=== PATIENT | male | born 1990 | race Caucasian/White ===

== ENCOUNTER 2016-09-22 11:22 | Observation (INO) | payer BC ==
[2016-09-22] MEDS: Dextrose 5%-0.45% NaCl 1,000 ML IV SCH ×2 (12:15→21:46)
[2016-09-22] MEDS ORDERED: Acetaminophen 325 MG Tab PO PRN (13:20)
[2016-09-22] MEDS ORDERED: Albuterol/Ipratropium 3.0-0.5 MG/3 ML Neb Soln NEB PRN (13:23)
[2016-09-22] MEDS ORDERED: Topiramate 25 MG Tab PO PRN (13:27)
[2016-09-22] MEDS ORDERED: Albuterol 8 GM Inhaler INH PRN (13:27)
[2016-09-22] MEDS ORDERED: Promethazine 25 MG/ML SDV IM PRN (13:27)
[2016-09-22] MEDS ORDERED: Cyclobenzaprine 10 MG Tab PO PRN (13:27)
[2016-09-22] MEDS: Levofloxacin/Dextrose 5%-Water 100 ML IV SCH (13:51)
[2016-09-23] MEDS: Dextrose 5%-0.45% NaCl 1,000 ML IV SCH (05:23)
[2016-09-23] MEDS ORDERED: Omeprazole 20 MG Cap.CR PO SCH (07:00)
[2016-09-23 07:50] LABS: CHLORIDE,CL 102 mmol/L (98-115); SODIUM,NA 138 mmol/L (136-145)
[2016-09-23] MEDS ORDERED: Cholecalciferol (Vitamin D3) 1,000 Unit Tab PO SCH (09:00)
[2016-09-23] MEDS ORDERED: Multivitamins with Minerals/Iron/Folic Acid/Lycopene Tab PO SCH (09:00)
[2016-09-23] MEDS ORDERED: Sodium Chloride 0.9% 1,000 ML IV SCH (11:15)
[2016-09-23] MEDS: Levofloxacin/Dextrose 5%-Water 100 ML IV SCH (14:33)
[2016-09-23 15:36] VITALS: BP 137/70
--- NOTE | 2016-09-26 10:32 | DISCH ---
The patient was admitted into observation last night on , discharged from observation today, 09/23/2016. FINAL DIAGNOSES: 1. Leukocytosis fever, unknown etiology, likely bacterial infection, occult infection, unknown terminology; however, clinically he is improving. 2. Mild dehydration, becoming more euvolemic. HISTORY: This 26-year-old, obese male was seen by Juan Antonio Ching yesterday at [facility]. He had been quite ill. The patient stated that he started feeling ill and at one time, he felt he was going to . He had a high fever of 104 temperature tympanically at home with cold flashes and chills where he just could not get warm. He works as a boat motor mechanic, locomotive engineer diesel in town here. Denied any shortness of breath. He was just feeling very tired and weak, body aches, so he had to leave to home, he had a headache also. Also, he complained of abdominal pain; however, the abdominal pain was kind of mild. He did take some Advil. He said one time the Advil did help his temperature. He had had bowel movement for a couple of days. Denies any diarrhea. Appetite has been very poor, so basically he was admitted for further workup and leukocytosis, placed on IV antibiotics. His white count yesterday at the clinic was 18,000. Hemoglobin and hematocrit were normal. Bands, absolute bands were negative. Percentage of neutrophils were elevated. No atypical of neutrophils noted. Glucose, sodium, potassium, chloride all are normal. BUN and creatinine were also normal. Chest x-ray at the clinic showed lungs were clear. No signs of consolidation. Abdominal x-ray showed nonobstructive bowel gas pattern. No definite free intraperitoneal air. HOSPITAL COURSE: Hospital course went well. Blood cultures were drawn, still pending. Sputum culture was not obtained. He has very little cough this morning. He was admitted for IV hydration and antibiotics. He was given Levaquin IV. This morning his white count is 13,000 down and his percentage neutrophils are 72%. Does have high monos around 12%, however, the eosinophils are low, so doubtful of any parasitic infection. His total intake about 2900 in with about 1600 out, so he still slightly dry, however, he is tolerating his meal, he is not vomiting. His abdominal pain is very minimal if any. He got D5- 1/2 with normal saline at 125 an hour right now. PHYSICAL EXAM ON DISCHARGE: LUNGS: Clear to auscultation. CV: Regular rate and rhythm. He has become more euvolemic. ABDOMEN: No negative abdominal tenderness. NECK: No lymphadenopathy. THROAT: Mildly red, however, no exudate. Negative for any nuchal rigidity. He had no side effects or adverse reactions to any medications. DISPOSITION: This afternoon around 1500, the patient will go home. He desires to be discharged from observation. He will have fluids running until then. He can be discharged as long as he does not have any vomiting. We will put him on Levaquin 750 mg p.o. daily x6 days. He will follow up with [facility]. He is supposed to report any ongoing fevers, any worsening abdominal pain, or any worsening cough or any weakness. He is supposed to drink plenty of fluids, rest today. MEDICATION ADJUSTMENTS: Levaquin as stated. He can continue on all his other home medications; however, I did discontinue a duplicating instead. I discontinued ibuprofen. /[id number]/MODL
== END 2016-09-23 17:00 | disposition home or self-care (01) ==
LOC: KA.MS 11:37
PROVIDERS: ADMIT Physician Assistant; ATTEND Physician Assistant
DX: R50.81 Fever presenting with conditions classified elsewhere (principal); E86.0 Dehydration; E66.01 Morbid (severe) obesity due to excess calories; K21.9 Gastro-esophageal reflux disease without esophagitis; M51.36 Other intervertebral disc degeneration, lumbar region; J45.909 Unspecified asthma, uncomplicated; F90.9 Attention-deficit hyperactivity disorder, unspecified type; F32.9 Major depressive disorder, single episode, unspecified; F41.8 Other specified anxiety disorders; Z88.0 Allergy status to penicillin; Z68.42 Body mass index [BMI] 45.0-49.9, adult; Z88.5 Allergy status to narcotic agent; Z98.890 Other specified postprocedural states; Z79.899 Other long term (current) drug therapy
CPT/HCPCS: 36415; 80053; 81001; 83605; 85025; 87040; 87070; 87205; 96361; 96365; 96366; A9270-GY; G0378; G0379; J1956; J7030; J7042